=== PATIENT | female | born 1940 | race Two or more races ===

== ENCOUNTER 2018-09-13 05:41 | Day surgery (SDC) | payer MEDICARE, OTHER ==
[~2018-09-13] VITALS: Ht 157.5 cm; Wt 79.4 kg
[2018-09-13] VITALS (9 sets, daily range): BP systolic 92–138; BP diastolic 57–72
[2018-09-13] MEDS ORDERED: GRALISE600 MG PO (06:28)
[2018-09-13] MEDS ORDERED: CLONIDINE HCL0.1 MG PO (06:28)
[2018-09-13] MEDS ORDERED: ZANTAC150 MG ORAL (06:28)
[2018-09-13] MEDS ORDERED: ASPIR 8181 MG ORAL (06:28)
[2018-09-13] MEDS ORDERED: CRESTOR10 M2 ORAL (06:28)
[2018-09-13] MEDS ORDERED: DEXILANT30 MG ORAL (06:28)
[2018-09-13] MEDS ORDERED: OYSTER SHELL 51 EAC1 PO (06:28)
[2018-09-13] MEDS ORDERED: DIOVAN HCT 1601 EAC1 ORAL (06:28)
[2018-09-13] MEDS ORDERED: IBUPROFEN600 MG ORAL (06:28)
[2018-09-13] MEDS ORDERED: LD2JL30 TOPIC (06:28)
[2018-09-13] MEDS ORDERED: Propofol 200mg/20ml IV ONE (07:03)
[2018-09-13] MEDS ORDERED: Midazolam 2mg/2ml Inj ONE (07:03)
[2018-09-13] MEDS ORDERED: fentaNYL 100 mcg/2 mL IV ONE (07:03)
[2018-09-13] MEDS ORDERED: Dexamethasone 4mg/ml vial ONE (07:16)
[2018-09-13] MEDS ORDERED: Lidocaine 1% Plain 30 ml INJ ONE (07:18)
[2018-09-13] MEDS ORDERED: NS Irrig 1000ml ONE (07:30)
[2018-09-13] MEDS ORDERED: LR 1000ml ONE (07:30)
[2018-09-13] MEDS ORDERED: Ketorolac 30mg Inj ONE (07:30)
[2018-09-13] MEDS ORDERED: Sterile Water Irrig 1000ml IRRIG ONE (07:30)
[2018-09-13] MEDS: Bupivacaine 0.5% Inj 30 ml vial INJ ONE ×2 (07:30→08:20)
--- NOTE | 2018-09-13 07:34 | Pre-Procedure Note/Attestation ---
Pre-Procedure Note/Attestation Complete Prior to Procedure Planned Procedure: left Procedure Narrative: Hammertoe correction second left digit Tenotomy and capsulotomy second left MPJ Indications for Procedure Pre-Operative Diagnosis: Hammertoe deformity second left digit Attestation I attest that I discussed the nature of the procedure; its benefits; risks and complications; and alternatives (and the risks and benefits of such alternatives ), prior to the procedure, with the patient (or the patient's legal mechanical service representative). I attest that, if there was a reasonable possibility of needing a blood transfusion, the patient (or the patient's legal mechanical service representative) was given the [facility] standardized written summary, pursuant to the [place] Blood Safety Act ([place] Health and Safety Code # 1645, as amended). I attest that I re-evaluated the patient just prior to the surgery and that there has been no change in the patient's H&P, except as documented below: Wili Paul DPM Sep 13, 2018 07:34
[2018-09-13] MEDS ORDERED: LR 1000ml 1,000 ML IVLG SCH (08:06)
--- NOTE | 2018-09-13 08:06 | Anethesia Preoperative Eval ---
Anesthesia Pre-op PMH/ROS General Date of Evaluation: Sep 13, 2018 Time of Evaluation: 07:10 Anesthesiologist: Gopi ASA Score: ASA 2 Mallampati Score Class I : Soft palate, uvula, fauces, pillars visible Class II: Soft palate, uvula, fauces visible Class III: Soft palate, base of uvula visible Class IV: Only hard plate visible Mallampati Classification: Class II Surgeon: Humberto Diagnosis: L foot arthritis Surgical Procedure: L foot hammer correction Anesthesia History: none Family History: no anesthesia problems Allergies: Coded Allergies: No Known Allergies (Unverified , 09/13/18) Medications: see eMAR Patient NPO?: Yes NPO Date: Sep 12, 2018 Past Medical History Cardiovascular: Reports: HTN; Denies: CAD, [place], valve dz, arrhythmia, other Pulmonary: Denies: asthma, COPD, AMELIA, other Gastrointestinal/Genitourinary: Reports: GERD; Denies: CRI, ESRD, other Neurologic/Psychiatric: Denies: dementia, CVA, depression/anxiety, TIA, other Endocrine: Denies: DM, hypothyroidism, steroids, other HEENT: Reports: cataract (L), cataract (R) - s/p Sx Hematology/Immune: Denies: anemia, DVT, bleeding disorder, other Musculoskeletal/Integumentary: Reports: OA; Denies: RA, DJD, DDD, edema, other Other: other - overweight PMH Narrative: as above PSxH Narrative: Bilateral cataracts, epidural injections Anesthesia Pre-op Phys. Exam Physician Exam Last Vital Signs Date Time Temp Pulse Resp B/P (MAP) Pulse Ox O2 Delivery O2 Flow Rate FiO2 09/13/18 06:19 Room Air 09/13/18 06:08 97.2 83 17 138/72 96 Constitutional: NAD Neurologic: CN 2-12 intact Cardiovascular: RRR, no M/R/G Respiratory: CTA Gastrointestinal: S/NT/ND Airway Exam Mallampati Score: Class II MO: limited Neck: stiff ROM: limited Teeth: missing Dentures: no upper, no lower Anesthesia Pre-op A/P Labs see chart Studies Pre-op Studies: EKG - NSR Risk Assessment & Plan Assessment: ASA 2 Plan: MAC Status Change Before Surgery: No Pre-Antibiotics Drug: Ancef 1gr. Given Within 1 Hr of Incision: Yes Time Given: 07:39 Spike Nguyễn MD Sep 13, 2018 08:06
[2018-09-13] MEDS ORDERED: fentaNYL 100 mcg/2 mL IV PRN (08:15)
[2018-09-13] MEDS ORDERED: DiphenhydrAMINE 50mg/ml Inj IVP PRN (08:15)
--- NOTE | 2018-09-13 08:32 | Brief Operative Note ---
Immediate Post Operative Note Operative Note Pre-op Diagnosis: Hammertoe deformity second left digit Procedure: Hammertoe correction second left digit Tenotomy and capsulotomy second left MPJ Post-op Diagnosis: same as pre-op Surgeon: Humberto Anesthesiologist: Gopi Anesthesia: MAC Specimen: yes Complications: none Condition: stable Fluids: 250 Estimated Blood Loss: minimal Drains: none Implant(s) used?: Yes Wili Paul DPM Sep 13, 2018 08:32
--- NOTE | 2018-09-13 08:40 | Immediate Post-Op Evaluation ---
Immediate Post-Op Evalulation Immediate Post-Op Evalulation Procedure: L foot 2-nd hammertoe repair Date of Evaluation: Sep 13, 2018 Time of Evaluation: 08:39 IV Fluids: 700 Blood Products: none Estimated Blood Loss: min Urinary Output: none Blood Pressure Systolic: 104 Blood Pressure Diastolic: 72 Pulse Rate: 74 Respiratory Rate: 20 O2 Sat by Pulse Oximetry: 98 Temperature (Fahrenheit): 97.8 Pain Score (1-10): 1 Nausea: No Vomiting: No Complications none Patient Status: awake, patent, none Hydration Status: adequate Spike Nguyễn MD Sep 13, 2018 08:40
--- NOTE | 2018-09-13 09:17 | 48 Hour Post Anesthesia Eval ---
Post Anesthesia Evaluation Procedure: L foot 2-nd hammertoe repair Date of Evaluation: Sep 13, 2018 Time of Evaluation: 09:15 Blood Pressure Systolic: 116 0: 64 Pulse Rate: 68 Respiratory Rate: 20 Temperature (Fahrenheit): 97.9 O2 Sat by Pulse Oximetry: 98 Airway: patent Nausea: No Vomiting: No Pain Intensity: 1 Hydration Status: adequate Cardiopulmonary Status: stable Mental Status/LOC: patient returned to baseline Follow-up Care/Observations: n/a Post-Anesthesia Complications: none Follow-up care needed: ready to discharge Spike Nguyễn MD Sep 13, 2018 09:17
--- NOTE | 2018-09-13 11:02 | Diagnostic Imaging Report ---
Indication: Status post left foot surgery, foot pain Technique: 3 views left foot Comparison: none Findings: A surgical screw is seen fusing the second proximal interphalangeal joint. This appears well aligned. There are degenerative changes of the second third and fourth distal interphalangeal joints. No acute fractures. There is mild hammertoe deformity of the third through fifth digits. There are small plantar and calcaneal spurs. There are vascular calcifications. Impression: Postoperative left foot, as described. No unusual features
--- NOTE | 2018-09-13 16:00 | History and Physical Report ---
DATE OF ADMISSION: 09/13/2018 HISTORY OF PRESENT ILLNESS: This is an 78-year-old white female who was admitted today for hammertoe correction of her left second digit. The patient has been complaining of painful hammertoe which was not responding to conservative care which consisted of padding and shoe-gear modification. She indicated that she is having difficulties in wearing closed shoes and the patient was consulted for an operation to correct the deformity. PAST MEDICAL HISTORY: Remarkable for hypertension, osteoarthritis, gastroesophageal reflex, and anemia. MEDICATIONS: Refer to chart notes. ALLERGIES: None. PODIATRIC PHYSICAL EXAMINATION: VASCULAR STATUS: Dorsalis pedis and posterior tibial arteries are equally palpable measuring 2/4 bilaterally. The capillary filling time is less than 4 seconds to all digits bilaterally. Homans sign is negative. Varicosities are present bilateral lower extremity. NEUROLOGICAL EXAMINATION: The reflexes Achilles and patellar measuring 2/4 bilaterally. Sensation, proprioception, and vibrations all intact bilateral lower extremity. Babinski is absent. Clonus is negative. Bilateral lower extremity. MUSCULOSKELETAL EXAMINATION: There is nonreducible hammertoe deformity of digits 2 through 5 bilaterally with the worst being the second digits on the left foot. Range of motion of the ankle, subtalar and midtarsal joints are all intact bilaterally. No crepitation is noted. DERMATOLOGICAL EXAMINATION: Reveals preulcerative corn at the dorsal aspect of the second left proximal interphalangeal joint. No other skin lesions are present. No scars or ulcerations are noted. The nails are intact and dystrophic bilaterally. ASSESSMENT: 1. Hammertoe deformity, second left digit. 2. Contracture second metatarsophalangeal joint, left foot. PLAN: The patient is admitted today for outpatient correction of her left hammertoe. Risks, complications and alternatives discussed with the patient. Postoperative instructions were dispensed to the patient. The postoperative medications were given. The patient elected to proceed with surgery. Wili Paul D.P.M. DR: Mahamed JOB#: [id number] CC:
--- NOTE | 2018-09-13 16:45 | Operative Note - Dictated ---
DATE OF OPERATION: 09/13/2018 SURGEON: Wili Paul D.P.M. ANESTHESIOLOGIST: Spike Nguyễn M.D. ANESTHESIA: Local standby. PREOPERATIVE DIAGNOSES: 1. Hammertoe deformity, second left digit. 2. Contracture second left metatarsophalangeal joint. POSTOPERATIVE DIAGNOSES: 1. Hammertoe deformity, second left digit. 2. Contracture second left metatarsophalangeal joint. PROCEDURES PERFORMED: 1. Tenotomy and capsulotomy, second left metatarsophalangeal joint. 2. Hammertoe correction with fusion off the second left proximal interphalangeal joint utilizing toe mate system from [employer]. DESCRIPTION OF THE OPERATION: The patient was brought to the operating room and was placed on the operating room table in a supine position. IV sedation was administered by the anesthesiologist. Local anesthesia utilizing 50:50 mix of 1% Xylocaine plain and 0.5% Marcaine plain, a total of 10 mL was administered to the left foot. An ankle tourniquet was applied to the left lower extremity. The foot was prepped and draped in usual sterile manner. An Esmarch bandage was then utilized to exsanguinate the blood and the left ankle tourniquet was inflated to 250 mmHg. Attention was then directed to the left second metatarsophalangeal joint where an approximately 6 centimeter dorsal linear incision was performed from just proximal to the metatarsophalangeal joint distal to the proximal interphalangeal joint of the second digit. The incision was deepened utilizing sharp and blunt dissection with care being taken to cauterize and ligate all bleeders. At the level of the metatarsophalangeal joint, a transverse tenotomy was performed. The capsule was severed utilizing a McGlamry scoop. The plantar medial and lateral attachments to the metatarsal head were all freed and the second digit was brought down plantarly. The wound was copiously flushed utilizing sterile saline. Attention was then directed to the second interphalangeal joint where a transverse tenotomy was performed over the joint. The extensor tendon was reflected proximally. The head of the proximal phalanx was exposed and collateral ligaments were severed. Utilizing a sagittal saw, the head of the proximal phalanx was resected in total. The remaining bone was rasped smooth. The wound was copiously flushed utilizing sterile saline. At this point, the cartilage was removed from the base of the intermediate phalanx. Utilizing a toe mate system, the proximal interphalangeal joint was fused with a small implant. At this point, the wound was copiously flushed utilizing sterile saline. The extensor tendon was then reapproximated to the level of the proximal interphalangeal joint. Utilizing 4-0 Vicryl in simple interrupted type stitch, the subcutaneous tissue was then reapproximated proximally utilizing 4-0 Vicryl in a buried knot type stitch. The skin was then reapproximated utilizing 4-0 nylon in a simple interrupted type stitch. The wound was dressed utilizing an Adaptic 4 x 4 and 3 inch Jenn. The right ankle tourniquet was deflated and vascular supply was noted to all digits right foot. The patient tolerated the procedure well and left the operating room to recovery room with all vital signs stable. Wili Paul D.P.M. DR: Mahamed JOB#: [id number] CC:
== END 2018-09-13 10:45 | disposition home or self-care (01) ==
LOC: SUR 05:41
DX: M20.42 Other hammer toe(s) (acquired), left foot (principal); M24.575 Contracture, left foot; I10 Essential (primary) hypertension; M19.90 Unspecified osteoarthritis, unspecified site; K21.9 Gastro-esophageal reflux disease without esophagitis; D64.9 Anemia, unspecified; E66.3 Overweight
CPT/HCPCS: 28285; 73630; J0690; J1100; J1885; J2001; J2250; J2704; J3010; J3490; 94003; 94150